=== PATIENT | female | born 1940 | race Caucasian/White ===

== ENCOUNTER → 2020-05-12 09:04 | Outpatient (CLI) | payer OTHER ==
[~2020-05-12 09:04] MED LIST: ATACAND32 MG PO; CANDESARTAN-HC1 EAC2 PO; CLONIDINE HCL0.1 MG PO; GLIMEPIRIDE2 M1 PO; HYDRALAZINE HCL50 MG PO; HYDROCHLOROTHIA25 MG PO; LEVOTHYROXINE50 MCG PO; LISINOPRIL40 MG PO; Lantus 1000 UNITS/10 SUBCUTANEO; MELATONIN5 M2 PO; METFORMIN HCL1000 M3 PO; METOPROLOL SUCC50 MG PO; POM (MEDICAMENTO EN PO; PRADAXA150 MG PO; SYNTHROID50 MCG PO; TOPROL XL25 M1 PO; VITAMIN C500 M1 PO; ZINC SULFATE220 M2 PO
== END | disposition home or self-care (01) ==
LOC: LAB 09:04
PROVIDERS: ATTEND Internal Medicine Pulmonary Disease
DX: U07.1 COVID-19 (principal); R05 Cough; R06.02 Shortness of breath; R50.9 Fever, unspecified

== ENCOUNTER 2020-05-12 10:27 | Inpatient (IN) | payer OTHER ==
[~2020-05-12] VITALS: Ht 160 cm; Wt 72.6 kg
[2020-05-14] MEDS ORDERED: PRADAXA150 MG PO (15:37)
[2020-05-14] MEDS ORDERED: GLIMEPIRIDE2 M1 PO (15:37)
[2020-05-14] MEDS ORDERED: LISINOPRIL40 MG PO (15:38)
[2020-05-14] MEDS ORDERED: CANDESARTAN-HC1 EAC2 PO (15:38)
[2020-05-14] MEDS ORDERED: CLONIDINE HCL0.1 MG PO (15:38)
[2020-05-14] MEDS ORDERED: METFORMIN HCL1000 M3 PO (15:38)
[2020-05-14] MEDS ORDERED: SYNTHROID50 MCG PO (15:39)
[2020-05-14] MEDS ORDERED: METOPROLOL SUCC50 MG PO (15:39)
[2020-05-17] MEDS ORDERED: HYDRALAZINE HCL50 MG PO (16:10)
[2020-05-17] MEDS ORDERED: Lantus 1000 UNITS/10 SUBCUTANEO (16:10)
[2020-05-17] MEDS ORDERED: LEVOTHYROXINE50 MCG PO (16:10)
[2020-05-17] MEDS ORDERED: POM (MEDICAMENTO EN PO (16:10)
[2020-05-17] MEDS ORDERED: TOPROL XL25 M1 PO (16:10)
[2020-05-17] MEDS ORDERED: ZINC SULFATE220 M2 PO (16:10)
[2020-05-17] MEDS ORDERED: HYDROCHLOROTHIA25 MG PO (16:10)
[2020-05-17] MEDS ORDERED: VITAMIN C500 M1 PO (16:10)
[2020-05-17] MEDS ORDERED: ATACAND32 MG PO (16:10)
[2020-05-17] MEDS ORDERED: MELATONIN5 M2 PO (16:10)
== END 2020-05-17 17:35 | disposition home or self-care (01) | DRG 177 ==
LOC: ER 10:27 → MEDJ 21:32 → MEDI 05-13 21:32 → MEDJ 05-17 17:35
PROVIDERS: ADMIT Internal Medicine; ATTEND Internal Medicine
PROC: BW24ZZZ Computerized Tomography (CT Scan) of Chest and Abdomen (ICD-10-PCS; 2020-05-12)
PROC: BT43ZZZ Ultrasonography of Bilateral Kidneys (ICD-10-PCS; principal; 2020-05-13)
PROC: B24BZZZ Ultrasonography of Heart with Aorta (ICD-10-PCS; 2020-05-13)
PROC: 4A12X4Z Monitoring of Cardiac Electrical Activity, External Approach (ICD-10-PCS; 2020-05-13)
DX: U07.1 COVID-19 (principal); J12.89 Other viral pneumonia; E86.0 Dehydration; E11.65 Type 2 diabetes mellitus with hyperglycemia; I48.0 Paroxysmal atrial fibrillation; E03.8 Other specified hypothyroidism; Z79.4 Long term (current) use of insulin

== ENCOUNTER → 2020-09-08 06:46 | Outpatient (CLI) | payer OTHER | END | disposition home or self-care (01) | LOC: LAB 06:46 | PROVIDERS: ATTEND Internal Medicine Pulmonary Disease | DX: R05 Cough (principal); R06.02 Shortness of breath; R50.9 Fever, unspecified; Z20.828 Contact with and (suspected) exposure to other viral communicable diseases ==

== ENCOUNTER 2021-04-08 08:00 | Outpatient (CLI) | payer OTHER | END 2021-04-08 08:20 | disposition home or self-care (01) | LOC: PPH VACUNA 08:00 | PROVIDERS: ATTEND Emergency Medicine Pediatric Emergency Medicine | DX: Z23 Encounter for immunization (principal) ==

== ENCOUNTER 2024-01-12 12:05 | Inpatient (IN) | payer OTHER ==
[~2024-01-12] VITALS: Ht 154.9 cm; Wt 50.8 kg
[2024-01-12] MEDS ORDERED: 0.9 % SODIUM CHLORIDE 1,000 ML IV STA (13:30)
[2024-01-12 13:52] LABS: HEMATOCRIT 26.1 % (36.0-45.00); MEAN CELL VOLUME 81.2 fL (80.00-100.00); MEAN CORPUSCULAR HGB CONC 32.7 g/dl (32.0-36.0); PLATELET COUNT 333 K/uL (150-450); RED BLOOD COUNT 3.22 M/uL (4.00-6.00); RED CELL DISTRIBUTION WIDTH 14.9 % (11.5-14.5)
[2024-01-12 14:01] LABS: HEMOGLOBIN 8.6 g/dL (12.0-15.00); MEAN CORPUSCULAR HEMOGLOBIN 26.7 pg (27.00-32.0)
[2024-01-12 14:24] LABS: ALBUMIN 3.2 gm/dL (3.4-5.0); BILIRUBIN TOTAL 0.49 mg/dL (0.3-1.2); BILIRUBIN,CONJUGATED 0.19 mg/dL (0.0-0.2); BILIRUBIN,UNCONJUGATED 0.3 mg/dL (0.0-0.6); CALCIUM 9.2 mg/dL (8.5-10.1); CREATININE SERUM 1.47 mg/dL (0.55-1.02); GFR 33.95; POTASSIUM 4.9 mEq/L (3.5-5.1); TOTAL PROTEIN 7.2 gm/dL (6.4-8.2)
[2024-01-12 17:53] LABS: URINE APPEARANCE Clear; URINE BILIRRUBIN Negative (NEGATIVE); URINE BLOOD Negative; URINE COLOR Yellow; URINE GLUCOSE Negative (NEGATIVE); URINE LEUKOCYTE Negative; URINE NITRATE Negative; URINE PROTEIN Negative (NEGATIVE); URINE UROBILINOGEN 0.2 E.U./dl
[2024-01-12 17:56] LABS: URINE BACTERIA 35.2 uL (0.0-1933); URINE EPITHELIAL CELLS 5.4 uL (0.0-38.8); URINE RBC 5.6 uL (0.0-20.8); URINE WBC 5.2 uL (0.0-23.2)
[2024-01-12] MEDS ORDERED: CEFTRIAXONE SODIUM 2,000 MG in 0.9 % SODIUM CHLORIDE 100 ML IV SCH (18:37)
[2024-01-12] MEDS ORDERED: METRONIDAZOLE/SODIUM CHLORIDE 100 ML IV SCH (18:37)
[2024-01-12] MEDS ORDERED: ACETAMINOPHEN 500 MG GEL..CAP PO PRN (18:45)
[2024-01-12] MEDS ORDERED: 0.9 % SODIUM CHLORIDE 1,000 ML IV SCH (18:45)
[2024-01-12] MEDS ORDERED: PANTOPRAZOLE SODIUM 80 MG in 0.9 % SODIUM CHLORIDE 100 ML IV SCH (18:45)
[2024-01-12] MEDS ORDERED: PANTOPRAZOLE SODIUM 40 MG/VIAL VIAL IV ONE (18:45)
[2024-01-12] MEDS ORDERED: INSULIN LISPRO 1,000 UNIT/10 ML UNITS SUBCUTANEO PRN (18:45)
[2024-01-12] MEDS ORDERED: DEXTROSE 50 % IN WATER 0.5 G/ML DISP.SYRIN IV PRN (18:45)
[2024-01-12] MEDS ORDERED: ONDANSETRON HCL 4 MG in 0.9 % SODIUM CHLORIDE 50 ML IV PRN (18:45)
[2024-01-12 21:48] LABS: INR 1.23; PARTIAL THROMBOPLASTIN TIME 28.5 SECONDS (22.0-34.0); PROTHROMBIN TIME 12.7 SECONDS (9.0-11.5)
[2024-01-12] MEDS ORDERED: CEFTRIAXONE SODIUM 2,000 MG VIAL ONE (21:51)
[2024-01-12] MEDS ORDERED: METRONIDAZOLE/SODIUM CHLORIDE 500 MG/100 ML PIGGYBACK IV ONE (21:52)
[2024-01-13] MEDS ORDERED: INSULIN LISPRO 1,000 UNIT/10 ML UNITS SUBCUTANEO ONE (02:19)
[2024-01-13 06:52] LABS: PHOSPHOROUS 3.4 mg/dL (2.5-4.9); TSH 1.5 uIU/mL (0.358-3.74)
[2024-01-13 07:09] LABS: ob POSITIVE (NEGATIVE)
[2024-01-13 07:11] LABS: FECAL LEUKOCYTES NEGATIVE (NEGATIVE)
[2024-01-14 02:32] LABS: HEMATOCRIT 29.1 % (36.0-45.00); MEAN CELL VOLUME 82.2 fL (80.00-100.00); MEAN CORPUSCULAR HEMOGLOBIN 28.2 pg (27.00-32.0); MEAN CORPUSCULAR HGB CONC 34.3 g/dl (32.0-36.0); PLATELET COUNT 206 K/uL (150-450); RED BLOOD COUNT 3.54 M/uL (4.00-6.00); RED CELL DISTRIBUTION WIDTH 14.6 % (11.5-14.5)
[2024-01-14 02:56] LABS: ALBUMIN 2.6 gm/dL (3.4-5.0); ALKALINE PHOSPHATASE 51 U/L (50-136); ALT/SGPT 19 U/L (12-78); AST/SGOT 19 U/L (15-37); BILIRUBIN TOTAL 1.05 mg/dL (0.3-1.2); BLOOD UREA NITROGEN 16 mg/dL (7-18); BUN CREA RATIO 22 (7.0-25.0); CALCIUM 8.2 mg/dL (8.5-10.1); CARBON DIOXIDE 21 mEq/L (21-32); CREATININE SERUM 0.72 mg/dL (0.55-1.02); GFR 77.36; GLOBULINA 2.8 G/DL (2.4-3.5); GLUCOSE FASTING 101 mg/dL (65-100); OSMOLALITY SERUM 288 MOSM/KG (275-295); PHOSPHOROUS 2.9 mg/dL (2.5-4.9); POTASSIUM 4.05 mEq/L (3.5-5.1); SODIUM 144 mmol/L (136-145); TOTAL PROTEIN 5.4 gm/dL (6.4-8.2)
[2024-01-14 03:00] LABS: ANION GAP 9 (10.0-20.0); C-REACTIVE PROTEIN < 0.29 MG/DL (0.00-0.29); CHLORIDE 118 mmol/L (98-107)
[2024-01-14 03:22] LABS: INR 1.53; PARTIAL THROMBOPLASTIN TIME 32.5 SECONDS (22.0-34.0)
[2024-01-14 03:23] LABS: PROTHROMBIN TIME 15.6 SECONDS (9.0-11.5)
[2024-01-14] MEDS ORDERED: MAGNESIUM SULFATE 1,000 MG in 0.9 % SODIUM CHLORIDE 50 ML IV ONE (20:00)
[2024-01-14] MEDS ORDERED: MAGNESIUM SULFATE/D5W 1GM/100ML PIGGYBAG IV ONE (20:36)
[2024-01-15 10:11] LABS: HEMATOCRIT 25.2 % (36.0-45.00); MEAN CELL VOLUME 82.2 fL (80.00-100.00); PLATELET COUNT 178 K/uL (150-450); RED BLOOD COUNT 3.07 M/uL (4.00-6.00); RED CELL DISTRIBUTION WIDTH 15.4 % (11.5-14.5)
[2024-01-15 10:15] LABS: HEMOGLOBIN 8.6 g/dL (12.0-15.00)
[2024-01-15] MEDS ORDERED: MIDAZOLAM HCL 2 MG/2 ML VIAL IV STA (10:44)
[2024-01-16] MEDS ORDERED: PANTOPRAZOLE SODIUM 40 MG/VIAL VIAL IV PUSH SCH (09:00)
[2024-01-16 19:34] LABS: HEMATOCRIT 24.4 % (36.0-45.00); HEMOGLOBIN 8.4 g/dL (12.0-15.00); MEAN CELL VOLUME 82.4 fL (80.00-100.00); MEAN CORPUSCULAR HEMOGLOBIN 28.3 pg (27.00-32.0); MEAN CORPUSCULAR HGB CONC 34.3 g/dl (32.0-36.0); PLATELET COUNT 169 K/uL (150-450); RED BLOOD COUNT 2.96 M/uL (4.00-6.00); RED CELL DISTRIBUTION WIDTH 15.7 % (11.5-14.5)
[2024-01-17 08:08] LABS: ALBUMIN 2.2 gm/dL (3.4-5.0); CALCIUM 8.1 mg/dL (8.5-10.1); CREATININE SERUM 0.56 mg/dL (0.55-1.02); GFR 103.39; POTASSIUM 3.03 mEq/L (3.5-5.1)
[2024-01-17 08:56] LABS: PHOSPHOROUS 1.6 mg/dL (2.5-4.9)
[2024-01-17] MEDS ORDERED: LACTOBACILLUS ACIDOPHILUS 1 CAP CAP PO SCH (09:00)
[2024-01-17] MEDS ORDERED: POTASSIUM PHOS,M-BASIC-D-BASIC 18 MM in 0.9 % SODIUM CHLORIDE 250 ML IV ONE ×2 (12:00→17:00)
[2024-01-17] MEDS ORDERED: POTASSIUM CHLORIDE IN WATER 100 ML IV SCH (13:00)
[2024-01-18 07:37] LABS: HEMATOCRIT 25.1 % (36.0-45.00); MEAN CELL VOLUME 83.5 fL (80.00-100.00); MEAN CORPUSCULAR HEMOGLOBIN 28.6 pg (27.00-32.0); MEAN CORPUSCULAR HGB CONC 34.2 g/dl (32.0-36.0); PLATELET COUNT 156 K/uL (150-450); RED CELL DISTRIBUTION WIDTH 15.7 % (11.5-14.5)
[2024-01-18 07:39] LABS: HEMOGLOBIN 8.6 g/dL (12.0-15.00)
[2024-01-18 08:23] LABS: ALBUMIN 2.1 gm/dL (3.4-5.0); BILIRUBIN TOTAL 0.37 mg/dL (0.3-1.2); CALCIUM 7.8 mg/dL (8.5-10.1); CREATININE SERUM 0.56 mg/dL (0.55-1.02); GFR 103.39; GLOBULINA 2.6 G/DL (2.4-3.5); PHOSPHOROUS 2.1 mg/dL (2.5-4.9); POTASSIUM 3.81 mEq/L (3.5-5.1); TOTAL PROTEIN 4.7 gm/dL (6.4-8.2)
[2024-01-18] MEDS ORDERED: CANDESARTAN-HC1 EAC2 PO (09:05)
[2024-01-18] MEDS ORDERED: ATACAND32 MG PO (09:05)
[2024-01-18] MEDS ORDERED: TOPROL XL25 M1 PO (09:06)
[2024-01-18] MEDS ORDERED: HYDRALAZINE HCL50 MG PO (09:06)
[2024-01-18] MEDS ORDERED: LISINOPRIL40 MG PO (09:06)
[2024-01-18] MEDS ORDERED: CLONIDINE HCL0.1 MG PO (09:06)
[2024-01-18] MEDS ORDERED: INTESTINEX680 M1 PO (09:07)
[2024-01-18] MEDS ORDERED: SYNTHROID50 MCG PO (09:08)
[2024-01-18] MEDS ORDERED: LEVOTHYROXINE50 MCG PO (09:08)
[2024-01-18] MEDS ORDERED: METFORMIN HCL1000 M3 PO (09:08)
[2024-01-18] MEDS ORDERED: MELATONIN5 M2 PO (09:09)
[2024-01-18] MEDS ORDERED: Lantus 1000 UNITS/10 SUBCUTANEO (09:09)
== END 2024-01-18 15:56 | disposition home or self-care (01) | DRG 378 ==
LOC: ER 12:05 → ICU-2 18:56 → ICU 18:56 → SURG 18:56 → ICU 01-13 12:32 → SURG 01-16 09:25
PROVIDERS: General Practice; Internal Medicine; Internal Medicine Infectious Disease; ADMIT Internal Medicine; ATTEND Internal Medicine
PROC: BW21ZZZ Computerized Tomography (CT Scan) of Abdomen and Pelvis (ICD-10-PCS; 2024-01-12)
PROC: 30233N1 Transfusion of Nonautologous Red Blood Cells into Peripheral Vein, Percutaneous Approach (ICD-10-PCS; 2024-01-13)
PROC: 02HV33Z Insertion of Infusion Device into Superior Vena Cava, Percutaneous Approach (ICD-10-PCS; 2024-01-14)
PROC: 0DJ08ZZ Inspection of Upper Intestinal Tract, Via Natural or Artificial Opening Endoscopic (ICD-10-PCS; principal; 2024-01-15)
PROC: 4A12X4Z Monitoring of Cardiac Electrical Activity, External Approach (ICD-10-PCS; 2024-01-16)
DX: K92.1 Melena (principal); E87.0 Hyperosmolality and hypernatremia; N17.9 Acute kidney failure, unspecified; D64.9 Anemia, unspecified; I10 Essential (primary) hypertension; E78.5 Hyperlipidemia, unspecified; G30.9 Alzheimer's disease, unspecified; F02.80 Dementia in other diseases classified elsewhere, unspecified severity, without behavioral disturbance, psychotic disturbance, mood disturbance, and anxiety; Z95.0 Presence of cardiac pacemaker

== ENCOUNTER → 2025-02-24 10:14 | Outpatient (CLI) | payer OTHER ==
[~2025-02-24 10:14] MED LIST changes: +INTESTINEX680 M1 PO; +METHOCARBAMOL500 MG PO
== END | disposition home or self-care (01) ==
LOC: NUCLEAR 02-23 11:00
PROVIDERS: ATTEND Physical Medicine & Rehabilitation
DX: I25.10 Atherosclerotic heart disease of native coronary artery without angina pectoris (principal)

== ENCOUNTER 2025-02-24 11:19 | Outpatient (CLI) | payer OTHER ==
[2025-02-24 12:27] LABS: BASO % 0.7 % (0.1-1.2); EOS # 0.12 (0.04-0.54); EOS % 1.1 % (0.7-7.0); LYMPH # 1.84 (1.18-3.74); LYMPH % 17.5 % (19.3-53.1); MEAN PLATELET VOLUME 11.70 fl (9.4-12.4); MONO # 0.75 (0.24-0.82); MONO % 7.1 % (4.7-12.5); NEUT # 7.68 (1.56-6.13); NEUT % 73.2 % (34.0-71.1); RED CELL DISTRIBUTION WIDTH 16.5 % (11.6-14.4)
[2025-02-24 12:51] LABS: URINE APPEARANCE Clear; URINE BILIRRUBIN Small (NEGATIVE); URINE BLOOD Negative; URINE COLOR Dark Yellow; URINE GLUCOSE Negative (NEGATIVE); URINE KETONE 15 (NEGATIVE); URINE LEUKOCYTE Trace; URINE NITRATE Negative; URINE UROBILINOGEN 1.0 E.U./dl
[2025-02-24 12:56] LABS: URINE BACTERIA 389.9 uL (0.0-1933); URINE CAST 7.03 uL (0.0-1.40); URINE EPITHELIAL CELLS 23.9 uL (0.0-38.8); URINE RBC 7.0 uL (0.0-20.8); URINE WBC 24.2 uL (0.0-23.2)
[2025-02-24 13:17] LABS: TYPE CELLS SQUAMOUS; URINE MUCUS MODERATE; URINE PROTEIN 100 (NEGATIVE)
== END 2025-02-24 11:26 | disposition home or self-care (01) ==
LOC: LAB 11:19
PROVIDERS: ATTEND Family Medicine
DX: I11.9 Hypertensive heart disease without heart failure (principal); R07.9 Chest pain, unspecified; N39.0 Urinary tract infection, site not specified